=== PATIENT | male | born 1960 | race Caucasian/White ===

== ENCOUNTER 2016-10-29 15:58 | Emergency (ER) | payer OTHER ==
[~2016-10-29] VITALS: Ht 175.3 cm; Wt 102.0 kg
[2016-10-29 15:59] VITALS: BP 141/84; PULSE 126; RESP 20; TEMP 98.1; O2SAT 98
[2016-10-29] MEDS ORDERED: SODIUM CHLOR 0.9% 1000 ML INJ 1,000 ML IV SCH (17:27)
[2016-10-29 17:30] VITALS: BP 124/73; PULSE 116; RESP 20; O2SAT 97
[2016-10-29] MEDS ORDERED: FAMOTIDINE 20 MG/2 ML VIAL IV PUSH ONE (17:30)
[2016-10-29] MEDS ORDERED: SODIUM CHLORIDE 0.9% FLUSH 10 ML FLUSH IV FLUSH PRN (17:30)
[2016-10-29] MEDS ORDERED: diphenhydrAMINE HCL 50 MG/ML VIAL IVP ONE (17:30)
--- NOTE | 2016-10-29 17:38 | PD ---
HPI Chief Complaint: Allergic/Adverse Reaction Time Seen by Provider: 17:17 Travel History International Travel<30 days: No Contact w/Intl Traveler<30days: No Traveled to known affect area: No History of Present Illness HPI Patient is a 56-year-old male who presents to emergency room with complaints of allergic reaction. Patient reports that he received IV contrast dye this morning around 10:30 AM as he was receiving a CT of his chest with IV contrast to evaluate for metastatic disease from his prostate cancer. Patient reports that 5 minutes after he received his IV dye, his extremities as well as his chest and arms turned red. Patient reports no airway involvement, denies shortness of breath, denies throat swelling. Patient reports that he has not taken any Benadryl or any medications after his CT of his chest. Patient was sent to the emergency room for allergic reaction to IV dye. Patient reports that he had a similar reaction to iodine in the past, reports that at that time , he did not have any airway involvement. PFSH Past Medical History Autoimmune Disease: Yes (FACTOR 5 LEIDEN ) Cancer: Yes (PROSTATE ) Psychiatric: Yes (PTSD) Tetanus Vaccination: < 5 Years Influenza Vaccination: Yes ?: Not Past Surgical History Tonsillectomy: Yes Social History Alcohol Use: No Tobacco Use: Yes (1 PPD ) Substance Use: No Allergies-Medications (Allergen,Severity, Reaction): Coded Allergies: Amoxicillin (Verified Allergy, Severe, GI UPSET, 10/29/16) Contrast Media (Verified Allergy, Severe, REDNESS, 10/29/16) Nonsteroidal Anti-Inflammatory Agts (Verified Allergy, Unknown, 10/29/16) Cipro (Verified Adverse Reaction, Severe, GI UPSET, 10/29/16) Uncoded Allergies: STEROIDS (Allergy, Severe, EDEMA, 10/29/16) Reported Meds & Prescriptions Reported Meds & Active Scripts Active Epipen 2-Carlos Eduardo Inj (Epinephrine) 0.3 Mg/0.3 Ml Pfpen 0.3 Mg IM ONCE PRN Benadryl Allergy (Diphenhydramine HCl) 25 Mg Tab 50 Mg PO Q6H PRN 7 Days Pepcid (Famotidine) 20 Mg Tab 20 Mg PO BID Review of Systems General / Constitutional: No: Fever Eyes: No: Visual changes HENT: No: Headaches, Vertigo, Lightheadedness, Sore Throat, Rhinitis Cardiovascular: No: Chest Pain or Discomfort Respiratory: No: Cough, Shortness of Breath, Wheezing Gastrointestinal: No: Abdominal Pain Genitourinary: No: Dysuria Musculoskeletal: No: Pain Skin: No Rash Neurologic: No: Weakness Psychiatric: No: Depression Endocrine: No: Polydipsia Hematologic/Lymphatic: No: Easy Bruising Physical Exam Narrative GENERAL: No acute distress, nontoxic SKIN: Focused skin assessment warm/dry. The patient with rash to chest, back, extremities, no petechia or purpura, patient with good cap refill HEAD: Atraumatic. Normocephalic. EYES: Pupils equal and round. No scleral icterus. No injection or drainage. ENT: No nasal bleeding or discharge. Mucous membranes pink and moist. Uvula midline, no swelling. Pharynx is open and patent with no swelling. NECK: Trachea midline. No JVD. CARDIOVASCULAR: Regular rate and rhythm. No murmur appreciated. RESPIRATORY: No accessory muscle use. Clear to auscultation. Breath sounds equal bilaterally. GASTROINTESTINAL: Abdomen soft, non-tender, nondistended. Hepatic and splenic margins not palpable. MUSCULOSKELETAL: No obvious deformities. No clubbing. No cyanosis. No edema. NEUROLOGICAL: Awake and alert. No obvious cranial nerve deficits. Motor grossly within normal limits. Normal speech. PSYCHIATRIC: Appropriate mood and affect; insight and judgment normal. Data Data Last Documented VS Vital Signs Date Time Temp Pulse Resp B/P Pulse Ox O2 Delivery O2 Flow Rate FiO2 10/29/16 18:30 104 20 120/68 96 Room Air 10/29/16 15:59 98.1 Orders Ecg Monitoring (10/29/16 17:27) Iv Access Insert/Monitor (10/29/16 17:27) Oximetry (10/29/16 17:27) Diphenhydramine Inj (Benadryl Inj) (10/29/16 17:30) Famotidine Inj (Pepcid Inj) (10/29/16 17:30) Sodium Chlor 0.9% 1000 Ml Inj (Ns 1000 M (10/29/16 17:27) Sodium Chloride 0.9% Flush (Ns Flush) (10/29/16 17:30) Sodium Chlor 0.9% 1000 Ml Inj (Ns 1000 M (10/29/16 17:45) MDM Medical Decision Making Medical Screen Exam Complete: Yes Emergency Medical Condition: Yes Interpretation(s) Vital Signs Date Time Temp Pulse Resp B/P Pulse Ox O2 Delivery O2 Flow Rate FiO2 10/29/16 17:13 18 97 Room Air 10/29/16 15:59 98.1 126 20 141/84 98 Room Air Differential Diagnosis Allergic reaction to IV dye Narrative Course Patient is a 56-year-old male who presents to emergency room for evaluation of allergic reaction to IV dye which was administered to him at 10:30 AM this morning for a CT of his chest with IV contrast. Patient with no airway involvement, reports that he developed a rash throughout his trunk, back, upper and lower extremities. Patient reports increased pruritus. Patient has not taking any Benadryl or any steroids for his symptoms. Patient reports that he does have an allergy to steroids, reports that he swells up gains 40 pounds. Patient refuses steroids at this time. Plan to obtain IV and give benadryl and pepcid. Plan to monitor patient. Patient received IV dye at 10:30 AM, patient with no airway involvement. Discussed with patient need for Benadryl as well as Pepcid. Patient refusing Steroids at this time. Patient reevaluated, patient with no airway involvement. Airway is open and patent with no swelling. Plan to have patient follow up with his primary care doctor. Signs and symptoms of when to return to the emergency room was reviewed with patient in detail. Patient was given prescription for EpiPen, he understands that if he administers this medication, he will need to go to nearest emergency room for monitoring. Diagnosis Primary Impression: Allergic reaction to contrast dye Qualified Code: T50.8X5A - Allergic reaction to contrast dye, initial encounter Patient Instructions: General Instructions Additional Instructions: Please follow-up with your primary care doctor Return to the emergency room as needed Return to the emergency room if symptoms worsen or progress Please take all medications as prescribed If you administer EpiPen to yourself, please go to the closest emergency room for monitoring Return to the emergency room at any time should you have any hard time breathing or worsening/progressing symptoms Med/Other Pt SpecificInfo: Prescription(s) given Scripts Epinephrine Inj (Epipen 2-Carlos Eduardo Inj)0.3 Mg/0.3 Ml Pfpen0.3 Mg IM ONCE PRN ( ALLERGIC REACTION) #1 PACK Ref 0 Prov:Allison Mclain DO 10/29/16 Diphenhydramine (Benadryl Allergy)25 Mg Tab50 Mg PO Q6H PRN (ALLERGIES) 7 Days Ref 0 Prov:Allison Mclain DO 10/29/16 Famotidine (Pepcid)20 Mg Tab20 Mg PO BID #7 TAB Ref 0 Prov:Allison Mclain DO 10/29/16 Disposition: 01 DISCHARGE HOME Condition: Stable Allison Mclain DO Oct 29, 2016 17:38
[2016-10-29 17:41] VITALS: O2SAT 96
[2016-10-29] MEDS ORDERED: SODIUM CHLOR 0.9% 1000 ML INJ 1,000 ML IV ONE (17:45)
[2016-10-29 18:30] VITALS: BP 120/68; PULSE 104; RESP 20; O2SAT 96
[2016-10-29] MEDS ORDERED: EPIP0.3I IM (18:54)
[2016-10-29] MEDS ORDERED: BENA25TA3 PO (18:54)
[2016-10-29] MEDS ORDERED: FAMO1TAB37 PO (18:54)
[2016-10-29 19:13] VITALS: BP 120/82; PULSE 88; RESP 18; O2SAT 98
== END 2016-10-29 19:59 | disposition home or self-care (01) ==
LOC: NEPD 15:58
DX: R21 Rash and other nonspecific skin eruption (principal); L29.9 Pruritus, unspecified; T50.8X5A Adverse effect of diagnostic agents, initial encounter; F17.200 Nicotine dependence, unspecified, uncomplicated; Z86.2 Personal history of diseases of the blood and blood-forming organs and certain disorders involving the immune mechanism; Z85.46 Personal history of malignant neoplasm of prostate; Z86.59 Personal history of other mental and behavioral disorders
CPT/HCPCS: 96374; 96375; 99283; J1200; J7030